=== PATIENT | male | born 1995 | race Caucasian/White ===

== ENCOUNTER 2017-08-29 17:11 | Emergency (ER) | payer MEDICAID ==
[2017-08-29 17:27] VITALS: BP 124/73; PULSE 67; RESP 16; TEMP 98.8; O2SAT 99
--- NOTE | 2017-08-29 17:38 | EDPHY ---
H & P Stated Complaint: ST Time Seen by Provider: 08/29/17 17:38 - Personal History Current Tetanus/Diphtheria Vaccine: Yes Current Tetanus Diphtheria and Acellular Pertussis (TDAP): Yes Tetanus Vaccine Date: 2013 - Medical/Surgical History Hx Asthma: No Hx Chronic Respiratory Disease: No Hx Diabetes: No Hx Cardiac Disease: No Hx Renal Disease: No Hx Cirrhosis: No Hx Alcoholism: No Hx HIV/AIDS: No Hx Splenectomy or Spleen Trauma: No Other PMH: none - Social History Smoking Status: Current some day smoker Constitutional: Initial Vital Signs Temperature (C) 37.1 C 08/29/17 17:25 Heart Rate 67 08/29/17 17:25 Respiratory Rate 16 08/29/17 17:25 Blood Pressure 124/73 H 08/29/17 17:25 O2 Sat (%) 99 08/29/17 17:25 O2 Delivery Mode Room Air Allergies/Adverse Reactions: No Known Allergies Allergy (Unverified 12/20/14 13:29) Home Medications: Medication Instructions Recorded Amoxicillin/Clavulanate Pot 875 mg PO BID #20 tab 08/29/17 [Augmentin 875 MG TAB (RX)] Azithromycin 08/29/17 Ibuprofen 08/29/17 oxyCODONE IR [Oxycodone Ir (*)] 5 - 10 mg PO Q6 PRN #10 tab 08/29/17 Medical Decision Making ED Course/Re-evaluation: CHIEF COMPLAINT: Sore throat HISTORY OF PRESENT ILLNESS: The patient is a 22 y/o male arriving with his friend complaining of a worsening sore throat for the last week. He went to urgent care and had a negative strep swab and was prescribed azithromycin. He has one dose of antibiotics remaining, but symptoms have actually worsened. He has pain with talking and swallowing, but is still able to do so. No respiratory difficulty. He has been using ibuprofen regularly for pain and swelling with some alleviation. He is normally healthy. REVIEW OF SYSTEMS: A 10 point review of systems was performed and is negative with the exception of the elements mentioned in the history of present illness. PHYSICAL EXAM: HR, BP, O2 Sat, RR. Temp noted General Appearance: Alert, well hydrated, appropriate, and non-toxic appearing. Head: Atraumatic without scalp tenderness or obvious injury Eyes: Pupils equal, round, reactive to light and accommodation, EOMI, no trauma , no injection. Ears: Clear bilaterally, no perforation, normal landmarks Nose: Atraumatic, no rhinorrhea, clear. Throat: Pharyngeal erythema. Edematous uvula and tonsils bilaterally, no fluctuance or peritonsillar abscess. No lesions or exudate. Mucus membranes moist. Neck: Supple, nontender, no lymphadenopathy. Respiratory: No distress. No stridor. Cardiovascular: Good capillary refill all extremities. Musculoskeletal: Normal active ROM of all extremities, atraumatic. Neurological: Alert, appropriate, and interactive. Nonfocal. Skin: No rashes, good turgor, no nodules on palpation. Past medical history: Denies Past surgical history: Denies Family history: Noncontributory Social history: Friend at bedside. [employer] student. DIFFERENTIAL DIAGNOSIS: The differential diagnosis for the patient's symptoms included but was not limited to pharyngitis, pneumonia, urinary tract infection , viral syndrome, meningitis, and sepsis. MEDICAL DECISION MAKING: This is a normally healthy 22 y/o male who presents with a 1-week history of progressive sore throat unimproved with a course of azithromycin. He has diffuse pharyngeal erythema with edematous uvula and tonsils, but no evidence of abscess at this time. No respiratory involvement. Plan for treatment with 10mg PO Decadron and first dose of Augmentin here and script for Augmentin and OxyIR at home. He will be given standard pharyngitis care instructions and referred to ENT for unimproved symptoms over the next couple days. Return precautions discussed. He agrees with plan. - Data Points Medications Given: Discontinued Medications Amoxicillin/Clavulanate Potassium (Augmentin 875mg) 875 mg PO EDNOW ONE PRN Reason: Protocol Stop: 08/29/17 18:04 Last Admin: 08/29/17 18:12 Dose: 875 mg Dexamethasone (Decadron Injection) 10 mg PO EDNOW ONE Stop: 08/29/17 18:02 Last Admin: 08/29/17 18:12 Dose: 10 mg Oxycodone/Acetaminophen (Percocet 5/325mg Prepack#4) 1 btl TAKEHOME EDNOW ONE Stop: 08/29/17 18:02 Last Admin: 08/29/17 18:12 Dose: 1 btl Departure - Departure Disposition: Home, Routine, Self-Care Clinical Impression: Acute pharyngitis Qualifiers: Pharyngitis/tonsillitis etiology: other specified organisms Qualified Code(s): J02.8 - Acute pharyngitis due to other specified organisms Condition: Good Instructions: Amoxicillin/Clavulanate Potassium (By mouth), Oxycodone, Rapid Release (By mouth), Pharyngitis (ED) Additional Instructions: 1. Take Augmentin as prescribed. Be sure to complete the entire prescription. 2. Use ibuprofen and Tylenol as directed on the packaging as needed for pain and fever over the next few days. 3. Use OxyIR as prescribed when needed for severe pain. 4. Follow up with ENT for unimproved symptoms over the next 2-3 days. 5. Return to the ED for severe pain, inability to swallow, difficulty breathing , or other worsening of condition. Referrals: Reji Warern MD [Medical Doctor] - As per Instructions Prescriptions: Amoxicillin/Clavulanate Pot [Augmentin 875 MG TAB (RX)] 875 mg PO BID #20 tab oxyCODONE IR [Oxycodone Ir (*)] 5 - 10 mg PO Q6 PRN #10 tab PRN Reason: Pain, Severe Report Scribed for: Deondre Schwartz Report Scribed by: Sarika Gamble Date of Report: 08/29/17 Time of Report: 17:56
[2017-08-29] MEDS ORDERED: DEXAMETHASONE 10 MG/ML VIAL PO ONE (18:01)
[2017-08-29] MEDS ORDERED: OXYCODONE/APAP 5/325MG PREPACK#4 BTL TAKEHOME ONE (18:01)
[2017-08-29] MEDS ORDERED: AMOXICILLIN/CLAVULANATE POT 875/125 MG TAB PO ONE (18:03)
== END 2017-08-29 18:15 | disposition home or self-care (01) ==
DX: J02.9 Acute pharyngitis, unspecified (principal); F17.200 Nicotine dependence, unspecified, uncomplicated
CPT/HCPCS: J1100